=== PATIENT | male | born 1985 | race Caucasian/White ===

== ENCOUNTER → 2021-01-03 | Outpatient (CLI) | payer OTHER | LOC: LAB SHORT 17:42 | DX: L02.222 Furuncle of back [any part, except buttock and flank] (principal); L20.89 Other atopic dermatitis; H01.135 Eczematous dermatitis of left lower eyelid | CPT/HCPCS: 87070; 87205 ==

== ENCOUNTER → 2022-02-28 | Outpatient (CLI) | payer OTHER | END | disposition home or self-care (01) | LOC: LAB SHORT 11:28 | DX: R10.30 Lower abdominal pain, unspecified (principal) | CPT/HCPCS: 87086 ==

== ENCOUNTER → 2024-12-22 | Outpatient (CLI) | payer OTHER | LOC: LAB SHORT 09:08 → PLD 09:08 | DX: L91.8 Other hypertrophic disorders of the skin (principal) | CPT/HCPCS: 88304 ==